=== PATIENT | female | born 1985 | race African-American/Black ===

== ENCOUNTER 2018-01-15 23:43 | Emergency (ER) | payer MEDICAID ==
[~2018-01-15] VITALS: Ht 162.6 cm; Wt 51.3 kg
[2018-01-16] MEDS ORDERED: KETOROLAC 30MG/ML VIAL IM ONE (02:00)
[2018-01-16 04:17] VITALS: BP 122/66
== END 2018-01-16 04:49 | disposition home or self-care (01) ==
LOC: ER 23:43
DX: M77.02 Medial epicondylitis, left elbow (principal)
CPT/HCPCS: 96372; 99283; J1885

== ENCOUNTER 2018-05-03 18:48 | Emergency (ER) | payer MEDICAID ==
[~2018-05-03] VITALS: Ht 162.6 cm; Wt 52.0 kg
[2018-05-03 22:50] VITALS: BP 107/72
[2018-05-03] MEDS ORDERED: ONDANSETRON 4MG ODT PO SCH (23:00)
[2018-05-03] MEDS ORDERED: DICYCLOMINE HCL 10MG CAPSULE PO SCH (23:00)
[2018-05-03 23:26] LABS: CLARITY URINE CLEAR (CLEAR); COLOR URINE YELLOW (YELLOW); KETONES URINE TRACE (NEGATIVE); LEUKOCYTE ESTERASE URINE NEGATIVE (NEGATIVE); NITRITE URINE NEGATIVE (NEGATIVE); OCCULT BLOOD URINE NEGATIVE (NEGATIVE); PH URINE 5.5 (4.5-8.0); PROTEIN URINE NEGATIVE (NEGATIVE); SPECIFIC GRAVITY URINE 1.026 (1.005-1.030); UROBILINOGEN URINE 0.2 E.U./dL (0.2-1.0)
== END 2018-05-04 00:20 | disposition home or self-care (01) ==
LOC: ER 18:58
DX: R11.2 Nausea with vomiting, unspecified (principal); R19.7 Diarrhea, unspecified; F12.10 Cannabis abuse, uncomplicated; F43.10 Post-traumatic stress disorder, unspecified
CPT/HCPCS: 81003; 81025; 99283; Q0162

== ENCOUNTER 2020-12-31 09:52 | Emergency (ER) | payer SELFPAY ==
[~2020-12-31] VITALS: Ht 162.6 cm; Wt 52.0 kg
[2020-12-31] MEDS ORDERED: AMOXICILLIN/POTASSIUM CLAVULANATE 875/125MG TAB PO ONE (11:00)
[2020-12-31] MEDS ORDERED: IBUPROFEN 800MG TABLET PO ONE (11:00)
[2020-12-31] MEDS ORDERED: ACETAMINOPHEN 500MG TABLET PO ONE (11:00)
[2020-12-31 11:24] VITALS: BP 113/83
[2020-12-31] MEDS ORDERED: CEFTRIAXONE SODIUM 1 G/VIAL IM ONE (11:45)
[2020-12-31] MEDS ORDERED: LIDOCAINE HCL 1% 10 MG/ML 10ML VIAL IJ NR (11:45)
[2020-12-31 11:49] LABS: CLARITY URINE CLEAR (CLEAR); COLOR URINE YELLOW (YELLOW); KETONES URINE NEGATIVE (NEGATIVE); LEUKOCYTE ESTERASE URINE NEGATIVE (NEGATIVE); NITRITE URINE NEGATIVE (NEGATIVE); OCCULT BLOOD URINE NEGATIVE (NEGATIVE); PH URINE 6.5 (4.5-8.0); PROTEIN URINE NEGATIVE (NEGATIVE); SPECIFIC GRAVITY URINE 1.022 (1.005-1.030)
[2020-12-31 11:51] LABS: BASOPHILS % 0.5 % (0.0-2.0); EOSINOPHILS % 1.1 % (0.0-5.0); HEMATOCRIT. 38.5 % (36.0-48.0); LYMPHOCYTES % 10.6 % (20.0-50.0); MEAN CORPUSCULAR HEMOGLOBIN 34.5 pg (28.0-32.0); MEAN CORPUSCULAR VOLUME 102.2 fL (81.0-99.0); MEAN PLATELET VOLUME 7.8 fl (7.4-10.4); MONOCYTES % 8.4 % (2.0-8.0); NEUTROPHILS % 79.4 % (40.0-76.0); PLATELET 188 x1000/uL (130-400); RED BLOOD CELL COUNT 3.77 mill/uL (4.2-5.4); RED CELL DISTRIBUTION WIDTH 12.9 % (11.6-14.6)
[2020-12-31 11:53] LABS: CHLORIDE 107 mEq/L (98-107)
[2020-12-31] MEDS ORDERED: HYDR-4001 MT (12:43)
[2020-12-31] MEDS ORDERED: AMOX-424 MT (12:43)
[2020-12-31] MEDS ORDERED: NEOM10DR11 EACH EAR (12:43)
[2020-12-31] MEDS ORDERED: NEOMYCIN-POLYMYXIN B-HYDROCORTISONE 1% OTIC SOLN 10ML RIGHT EAR NR (13:00)
== END 2020-12-31 13:15 | disposition home or self-care (01) ==
LOC: ER 10:02
DX: H60.91 Unspecified otitis externa, right ear (principal); H70.91 Unspecified mastoiditis, right ear; K02.9 Dental caries, unspecified; K08.89 Other specified disorders of teeth and supporting structures
CPT/HCPCS: 36415; 80048; 81003; 81025; 85025; 96372; 99284; J0696; J3490

== ENCOUNTER 2021-01-02 13:26 | Emergency (ER) | payer SELFPAY ==
[~2021-01-02] VITALS: Ht 152.4 cm; Wt 55.0 kg
[~2021-01-02 13:26] MED LIST: AMOX-424 MT; HYDR-4001 MT; NEOM10DR11 EACH EAR
[2021-01-02 13:34] VITALS: BP 115/89
== END 2021-01-02 20:12 | disposition left against medical advice (07) ==
LOC: ER 13:26
DX: Z53.21 Procedure and treatment not carried out due to patient leaving prior to being seen by health care provider (principal)

== ENCOUNTER 2021-01-06 12:21 | Emergency (ER) | payer SELFPAY ==
[~2021-01-06] VITALS: Ht 162.6 cm; Wt 54.0 kg
[2021-01-06] MEDS ORDERED: IBUPROFEN 400MG TABLET PO ONE (18:45)
[2021-01-06] MEDS ORDERED: ACETAMINOPHEN 325MG TABLET PO ONE (18:45)
[2021-01-06 20:49] LABS: BASOPHILS % 1.1 % (0.0-2.0); HEMATOCRIT. 37.7 % (36.0-48.0); HEMOGLOBIN. 12.6 g/dL (12.0-16.0); LYMPHOCYTES % 31.5 % (20.0-50.0); MEAN CORPUSCULAR HEMOGLOBIN 34.3 pg (28.0-32.0); MEAN CORPUSCULAR VOLUME 102.7 fL (81.0-99.0); MONOCYTES % 6.9 % (2.0-8.0); NEUTROPHILS % 57.5 % (40.0-76.0); PLATELET 260 x1000/uL (130-400); RED BLOOD CELL COUNT 3.67 mill/uL (4.2-5.4); RED CELL DISTRIBUTION WIDTH 12.5 % (11.6-14.6)
[2021-01-06 20:57] LABS: CHLORIDE 107 mEq/L (98-107)
[2021-01-06] MEDS ORDERED: IOHEXOL-300 100 ML BOTTLE ONE (23:19)
[2021-01-07] MEDS ORDERED: CEFD300C3 MT (01:07)
[2021-01-07] MEDS ORDERED: IBUP-2028 MT (01:08)
[2021-01-07 01:30] VITALS: BP 129/82
== END 2021-01-07 01:50 | disposition home or self-care (01) ==
LOC: ER 12:21
DX: H66.93 Otitis media, unspecified, bilateral (principal); H92.03 Otalgia, bilateral; Z87.891 Personal history of nicotine dependence
CPT/HCPCS: 36415; 70491; 80053; 85025; 99285; Q9967

== ENCOUNTER 2024-05-30 06:26 | Emergency (ER) | payer MEDICAID ==
[~2024-05-30] VITALS: Ht 170.2 cm; Wt 54.0 kg
[~2024-05-30 06:26] MED LIST changes: +CEFD300C3 MT; +IBUP-2028 MT
[2024-05-30 07:08] VITALS: TEMP 36.9; O2SAT 100
[2024-05-30] MEDS ORDERED: AMOX1TAB16 MT (07:30)
[2024-05-30 08:34] VITALS: BP 117/89; PULSE 71; RESP 16; O2SAT 100
== END 2024-05-30 08:46 | disposition home or self-care (01) ==
LOC: ER 06:26
DX: H66.93 Otitis media, unspecified, bilateral (principal); F12.90 Cannabis use, unspecified, uncomplicated; Z79.899 Other long term (current) drug therapy
CPT/HCPCS: 99283; Z7610

== ENCOUNTER 2024-06-01 12:57 | Inpatient (IN) | payer OTHER, MEDICAID ==
[~2024-06-01] VITALS: Ht 162.6 cm; Wt 53.1 kg
[~2024-06-01 12:57] MED LIST changes: +AMOX1TAB16 MT
[2024-06-01 13:43] VITALS: O2SAT 99
[2024-06-01] MEDS: PROCHLORPERAZINE 10MG/2ML VIAL IM ONE (15:30)
[2024-06-01 15:47] LABS: BASOPHILS % 0.9 % (0.0-2.0); DIFFERENTIAL COMMENT 0; EOSINOPHILS % 0.6 % (0.0-5.0); HEMATOCRIT. 40.8 % (36.0-48.0); HEMOGLOBIN. 13.4 g/dL (12.0-16.0); LYMPHOCYTES % 19.6 % (20.0-50.0); MEAN CORPUSCULAR HGB CONC 32.9 g/dL (31.0-37.0); MEAN CORPUSCULAR VOLUME 103.2 fL (81.0-99.0); MEAN PLATELET VOLUME 7.5 fl (7.4-10.4); MONOCYTES % 6.3 % (2.0-8.0); NEUTROPHILS % 72.6 % (40.0-76.0); PLATELET 232 x1000/uL (130-400); RED BLOOD CELL COUNT 3.95 mill/uL (4.2-5.4); RED CELL DISTRIBUTION WIDTH 13.7 % (11.6-14.6); WHITE BLOOD COUNT 8.9 x1000/uL (4.5-11.0)
[2024-06-01 15:54] LABS: CARBON DIOXIDE 28 mEq/L (21-32); CHLORIDE 107 mEq/L (98-107); SODIUM 139 mEq/L (136-145)
[2024-06-01 15:55] LABS: CALCIUM 9.5 mg/dL (8.7-10.4); PROTHROMBIN TIME 10.5 sec (9.6-11.0)
[2024-06-01 15:59] LABS: CREATININE 0.7 mg/dL (0.6-1.0)
[2024-06-01 16:00] LABS: GLUCOSE 86 mg/dL (70-105); UREA NITROGEN BLOOD 10 mg/dL (9-23)
[2024-06-01 16:01] LABS: ALANINE AMINOTRANSFERASE 9 IU/L (10-49); ALBUMIN 3.9 g/dL (3.2-4.8); ASPARTATE AMINOTRANSFERASE 16 IU/L (<34)
[2024-06-01 16:02] LABS: BILIRUBIN DIRECT 0.1 mg/dL (<=3.0); BILIRUBIN TOTAL 0.4 mg/dL (0.1-1.0); PROTEIN TOTAL 6.9 g/dL (6.0-8.3)
[2024-06-01 18:12] LABS: CLARITY URINE CLEAR (CLEAR); COLOR URINE YELLOW (YELLOW); GLUCOSE URINE NEGATIVE (NEGATIVE); KETONES URINE TRACE (NEGATIVE); LEUKOCYTE ESTERASE URINE NEGATIVE (NEGATIVE); NITRITE URINE NEGATIVE (NEGATIVE); OCCULT BLOOD URINE 2+ (NEGATIVE); PH URINE 6.5 (4.5-8.0); PROTEIN URINE NEGATIVE (NEGATIVE); SPECIFIC GRAVITY URINE 1.021 (1.005-1.030); UROBILINOGEN URINE 0.2 E.U./dL (0.2-1.0)
[2024-06-01 18:25] LABS: HCG SCREEN NEGATIVE
[2024-06-01 18:25] LABS: BACTERIA URINE NONE SEEN; RBC URINE 0-2 /hpf (0-2); SQUAMOUS EPITHELIAL CELL URINE FEW /lpf (RARE/1+); WBC URINE NONE SEEN /hpf (0-2)
[2024-06-01] MEDS: SODIUM CHLORIDE 0.9% (SEPSIS BOLUS) IV ONE (18:26)
[2024-06-01] MEDS: AMPICILLIN SOD/SULBACTAM NA 3 G in SODIUM CHLORIDE 0.9% 100 ML IV STA (18:36)
[2024-06-01] MEDS: VANCOMYCIN 1G PREMIX 200 ML IV ONE (18:51)
[2024-06-01] MEDS ORDERED: IPRATROPIUM/ALBUTEROL 0.5-3(2.5)MG/3ML NEB HHN PRN (22:15)
[2024-06-01] MEDS ORDERED: ACETAMINOPHEN 650MG/20.3ML UDC GT PRN (22:15)
[2024-06-01] MEDS ORDERED: ONDANSETRON HCL 4MG/2ML INJ IV PRN (22:15)
[2024-06-01] MEDS ORDERED: ACETAMINOPHEN 650MG SUPP PR PRN (22:15)
[2024-06-01] MEDS ORDERED: MECLIZINE 12.5MG TABLET PO PRN (22:45)
[2024-06-01] MEDS ORDERED: VANCOMYCIN 1GM/200ML PMX (BAXTER) IV NR (23:00)
[2024-06-02 02:20] VITALS: BP 118/79; PULSE 66; RESP 18; TEMP 36.3
[2024-06-02 03:00] VITALS: BP 121/74; PULSE 53; RESP 20; TEMP 36.3; O2SAT 95
[2024-06-02] MEDS: AMPICILLIN SOD/SULBACTAM NA 3 G in SODIUM CHLORIDE 0.9% 100 ML IV SCH ×2 (04:46→12:54)
[2024-06-02] MEDS ORDERED: PIPERACILLIN/TAZO 3.375G/100ML 100 ML IV SCH (06:00)
[2024-06-02] MEDS: VANCOMYCIN 750MG/150ML (BAXTER) IV SCH (06:09)
[2024-06-02 08:00] VITALS: BP 121/77; PULSE 59; RESP 18; TEMP 36.7; O2SAT 100
[2024-06-02] MEDS: FAMOTIDINE 20MG TABLET PO SCH (10:03)
[2024-06-02] MEDS: FLUTICASONE PROPIONATE 50MCG/SPRAY BOTTLE BOTHNSTRLS SCH (10:06)
[2024-06-02 10:12] LABS: *AMPHETAMINES SCREEN URINE NEGATIVE (NEGATIVE); *BARBITURATES SCREEN URINE NEGATIVE (NEGATIVE); *BENZODIAZEPINES SCREEN URINE NEGATIVE (NEGATIVE); *COCAINE SCREEN URINE NEGATIVE (NEGATIVE); CANNABINOID URINE SCREEN PRESUMPTIVE POSITIVE (NEGATIVE); ECSTASY MDMA SCREEN URINE NEGATIVE (NEGATIVE); METHADONE URINE SCREEN NEGATIVE (NEGATIVE); OPIATES URINE SCREEN NEGATIVE (NEGATIVE); PHENCYCLIDINE URINE SCREEN NEGATIVE (NEGATIVE)
[2024-06-02 12:00] VITALS: BP 125/85; PULSE 79; RESP 19; TEMP 36.3; O2SAT 100
[2024-06-02 12:04] LABS: BASOPHILS % 0.9 % (0.0-2.0); DIFFERENTIAL COMMENT 0; EOSINOPHILS % 0.9 % (0.0-5.0); HEMATOCRIT. 40.8 % (36.0-48.0); HEMOGLOBIN. 13.5 g/dL (12.0-16.0); LYMPHOCYTES % 20.4 % (20.0-50.0); MEAN CORPUSCULAR HEMOGLOBIN 34.2 pg (28.0-32.0); MEAN CORPUSCULAR VOLUME 103.6 fL (81.0-99.0); MEAN PLATELET VOLUME 7.9 fl (7.4-10.4); MONOCYTES % 7.5 % (2.0-8.0); NEUTROPHILS % 70.3 % (40.0-76.0); PLATELET 244 x1000/uL (130-400); RED BLOOD CELL COUNT 3.94 mill/uL (4.2-5.4); RED CELL DISTRIBUTION WIDTH 14.2 % (11.6-14.6); WHITE BLOOD COUNT 7.6 x1000/uL (4.5-11.0)
[2024-06-02 13:02] LABS: CALCIUM 9.3 mg/dL (8.7-10.4); CARBON DIOXIDE 28 mEq/L (21-32); CHLORIDE 108 mEq/L (98-107); POTASSIUM 3.6 mEq/L (3.5-5.1); SODIUM 141 mEq/L (136-145)
[2024-06-02 13:06] LABS: CREATININE 0.7 mg/dL (0.6-1.0); GLUCOSE 95 mg/dL (70-105)
[2024-06-02 13:08] LABS: PHOSPHORUS 2.6 mg/dL (2.5-4.9); UREA NITROGEN BLOOD 6 mg/dL (9-23)
[2024-06-02 13:12] LABS: FOLIC ACID (FOLATE) SERUM 12.52 ng/mL (>5.38); VITAMIN B12 SERUM 283 pg/mL (211-911)
[2024-06-02 13:13] LABS: T4 FREE 1.41 ng/dL (0.89-1.76)
[2024-06-02 13:23] LABS: HEPATITIS B SURFACE ANTIGEN NEGATIVE (Negative)
[2024-06-02 13:44] LABS: HEPATITIS C AB NON REACTIVE (Neg) (Negative)
[2024-06-02] MEDS: CEFTRIAXONE 1GM/50ML 50 ML IV SCH (15:48)
[2024-06-02] MEDS ORDERED: VANCOMYCIN 1G PREMIX 200 ML IV SCH (21:00)
== END 2024-06-02 16:30 | disposition left against medical advice (07) | DRG 153 ==
LOC: ER 12:57 → 6EST 21:20 → EDBEDREQ 21:39 → EDBEDREQTM 21:39
PROVIDERS: ADMIT Internal Medicine; ATTEND Internal Medicine
DX: H66.90 Otitis media, unspecified, unspecified ear (principal); D75.89 Other specified diseases of blood and blood-forming organs; Z53.21 Procedure and treatment not carried out due to patient leaving prior to being seen by health care provider; H71.90 Unspecified cholesteatoma, unspecified ear; H81.09 Meniere's disease, unspecified ear; F12.90 Cannabis use, unspecified, uncomplicated; H69.80 Other specified disorders of Eustachian tube, unspecified ear; Z79.899 Other long term (current) drug therapy
CPT/HCPCS: 36415; 70486; 80048; 80076; 80305; 81003; 82607; 82746; 83605; 83735; 84100; 84439; 84443; 84703; 85025; 85044; 86705; 87340; 99285; A4606; J0295; J0696; J0780; J3370; J7030; J7050